=== PATIENT | female | born 2000 | race Caucasian/White ===

== ENCOUNTER → 2022-04-11 17:10 | Outpatient (CLI) | payer OTHER, SELFPAY ==
[2022-04-11 19:41] LABS: Urine N gonorrhoeae NOT DETECTED
[2022-04-11 19:50] LABS: Urine Chlamydia NOT DETECTED
[2022-04-11 20:11] LABS: HIV 1 & 2 Ab/Ag 4th Gen Combo NEGATIVE (NEGATIVE)
[2022-04-13 05:33] LABS: RPR Screen Non Reactive (Non Reactive)
== END ==
PROVIDERS: PCP Family Medicine; Referring Provider Family Medicine; Visit Provider Family Medicine
DX: Z11.3 Encounter for screening for infections with a predominantly sexual mode of transmission (principal)
CPT/HCPCS: 36415; 86592; 87389; 87491; 87591

== ENCOUNTER → 2022-06-23 15:09 | Outpatient (CLI) | payer OTHER, SELFPAY ==
[2022-06-23 15:28] LABS: Hematocrit 37.7 % (36-46); Hemoglobin 12.6 g/dL (12.0-16.0); Mean Corpuscular HGB Conc 33.4 % (30-36); Mean Corpuscular Hemoglobin 30.7 PG (26-34); Mean Corpuscular Volume 91.8 fL (80-100); Platelet Count 217 X10^3/uL (150-400); Red Cell Distribution Width 12.9 % (11.6-14.8); White Blood Cell Count 9.7 X10^3/uL (4.5-11.0)
[2022-06-23 15:55] LABS: BUN Creatinine Ratio 27.4 (6-22); Blood Urea Nitrogen 17 mg/dL (7-17); Calcium 9.2 mg/dL (8.4-10.2); Carbon Dioxide 28 mmol/L (22-32); Chloride 98 mmol/L (98-107); Estimated Glomerular Filt Rate > 60 mL/min (>60); Glucose 94 mg/dL (70-100); HEMOLYSIS < 15 (0-50); Potassium 3.2 mmol/L (3.4-5.1); Sodium 136 mmol/L (137-145)
== END ==
PROVIDERS: PCP Family Medicine; Referring Provider Nurse Practitioner Family; Visit Provider Nurse Practitioner Family
DX: R10.2 Pelvic and perineal pain (principal)
CPT/HCPCS: 36415; 80048; 85027

== ENCOUNTER → 2022-07-14 16:12 | Outpatient (CLI) | payer OTHER, SELFPAY ==
--- NOTE | 2022-07-14 16:13 | DI.US.S_ITS ---
PROCEDURE: US PELVIC COMPLETE INDICATIONS: pelvic pain TECHNIQUE: Real-time scanning was performed of the pelvic organs, with image documentation. Additional endovaginal scanning was necessary due to incomplete visualization of the adnexal and endometrial structures by transabdominal scanning. COMPARISON: [facility], CT, CT KUB, 12/24/2020, 22:43. FINDINGS: Uterus: Uterus is anteverted and normal in size at 6.1 x 2.1 x 3.4 cm. The myometrium is homogeneous. The endometrium measures 2 mm combined thickness. Ovaries: The right ovary measures 3.6 x 2.9 x 2.9 cm, with a calculated ovarian volume of 15.7 cc. The left ovary measures 3.1 x 1.6 x 1.8 cm, with a calculated ovarian volume of 0.6 cc. The ovaries have a normal sonographic appearance, with note made of a dominant cystic follicle involving the right ovary that measures up to 2.7 cm, with a daughter cyst seen. This is considered to be within physiologic limits. Less than 12 follicles can be seen in each ovary. No adnexal masses are seen. Other: No pathologic free abdominal or pelvic fluid. IMPRESSION: Unremarkable pelvic ultrasound, without a cause of pelvic pain identified. We strive to produce accurate, complete, and clear reports of imaging services. To assist us in improving patient care, this report was composed using standard report templates and voice recognition software. Therefore, it may contain abnormal punctuation, insertions and/or omissions. Occasional wrong-word or sound-alike substitutions may occur. Though we review the report and make efforts to correct it, we do recommend that the report be read carefully in proper context to recognize any text inaccuracies. Dictated by: Jabeir Iqbal M.D. on 07/14/2022 at 17:48 Approved by: Jabier Iqbal M.D. on 07/14/2022 at 17:49
== END ==
PROVIDERS: PCP Family Medicine; Referring Provider Nurse Practitioner Family; Visit Provider Nurse Practitioner Family
DX: R10.2 Pelvic and perineal pain (principal)
CPT/HCPCS: 76830; 76856

== ENCOUNTER → 2023-04-18 14:35 | Outpatient (CLI) | payer OTHER, MEDICAID, SELFPAY ==
[2023-04-18 15:30] LABS: Pregnancy Test Serum,Qual Negative (Negative)
[2023-04-18 16:50] LABS: Urine N gonorrhoeae NOT DETECTED
[2023-04-18 16:53] LABS: Urine Chlamydia NOT DETECTED
[2023-04-19 07:23] LABS: RPR Screen Non Reactive (Non Reactive)
[2023-04-20 18:18] LABS: Hepatitis B Surface Antigen NEGATIVE s/c (NEGATIVE)
[2023-04-20 18:38] LABS: HIV 1 & 2 Ab/Ag 4th Gen Combo NEGATIVE (NEGATIVE); Hep C Virus Ab w/Reflex Quant NEGATIVE s/c (NEGATIVE)
[2023-05-30 12:44] LABS: HSV1IGG 2.92
[2023-05-30 12:53] LABS: HSV 2 IGG AB 8.26
== END ==
PROVIDERS: PCP Family Medicine; Referring Provider Family Medicine; Visit Provider Family Medicine
DX: N92.6 Irregular menstruation, unspecified (principal)
CPT/HCPCS: 36415; 84703; 86592; 86695; 86696; 86803; 87340; 87389; 87491; 87591

== ENCOUNTER → 2023-12-27 11:24 | Outpatient (CLI) | payer OTHER, MEDICAID, SELFPAY ==
[2023-12-27 12:11] LABS: Add Manual Diff / Slide Review NO; Basophils Absolute Auto 0 /uL (0-100); Basophils Percent Auto 0.6 % (0-2); Eosinophils Absolute Auto 200 /uL (0-450); Eosinophils Percent Auto 2.4 % (2-4); Hematocrit 37.2 % (36-46); Hemoglobin 12.6 g/dL (12.0-16.0); Lymphocytes Absolute Auto 2100 /uL (1100-4500); Lymphocytes Percent Auto 33.5 % (25-40); Mean Corpuscular Hemoglobin 31.1 PG (26-34); Mean Corpuscular Volume 91.6 fL (80-100); Monocytes Absolute Auto 700 /uL (0-900); Monocytes Percent Auto 10.6 % (3-14); Neutrophils Absolute Auto 3400 /uL (1500-7000); Neutrophils Percent Auto 52.9 % (50-75); Platelet Count 265 X10^3/uL (150-400); Red Blood Cell Count 4.05 X10^6/uL (4.0-5.2); Red Cell Distribution Width 13.2 % (11.6-14.8); White Blood Cell Count 6.4 X10^3/uL (4.5-11.0)
[2023-12-27 12:35] LABS: Alanine Aminotransferase 19 IU/L (<35); Albumin 4.4 g/dL (3.5-5.0); Albumin Globulin Ratio 1.6 (1.0-2.8); Alkaline Phosphatase 85 U/L (38-126); Aspartate Aminotransferase 25 IU/L (14-36); BUN Creatinine Ratio 20.7 (6-22); Bilirubin Total 0.3 mg/dL (0.2-1.3); Blood Urea Nitrogen 17 mg/dL (7-17); Calcium 8.8 mg/dL (8.4-10.2); Carbon Dioxide 23 mmol/L (22-32); Chloride 106 mmol/L (98-107); Estimated Glomerular Filt Rate > 60 mL/min (>60); Globulin 2.7 g/dL (1.7-4.1); Glucose 84 mg/dL (70-100); HEMOLYSIS < 15 (0-50); Potassium 4.9 mmol/L (3.4-5.1); Sodium 137 mmol/L (137-145); Total Protein 7.1 g/dL (6.3-8.2)
[2023-12-27 12:38] LABS: HEMOLYSIS < 15 (0-50); Iron 97 ug/dL (37-170)
[2023-12-27 12:50] LABS: Percent Iron Saturation 28 % (15-50); Total Iron Binding Capacity 346 ug/dL (265-497); Transferrin 276 mg/dL (206-381)
[2023-12-27 13:09] LABS: TSH w/ Reflex to FT4 1.21 uIU/mL (0.47-4.68)
[2023-12-27 13:10] LABS: Ferritin 43 ng/mL (6-137)
[2023-12-27 13:24] LABS: Vitamin B12 417 pg/mL (239-931)
== END ==
LOC: LAB 11:25
PROVIDERS: PCP Family Medicine; Referring Provider Physician Assistant; Visit Provider Physician Assistant
DX: N92.6 Irregular menstruation, unspecified (principal); R53.83 Other fatigue
CPT/HCPCS: 36415; 80053; 82607; 82728; 83540; 83550; 84443; 85025

== ENCOUNTER → 2024-02-12 16:28 | Outpatient (CLI) | payer OTHER, MEDICAID, SELFPAY ==
[2024-02-13 14:12] LABS: Interpretation Negative (Negative)
== END ==
LOC: LAB 16:30
PROVIDERS: PCP Family Medicine; Referring Provider Family Medicine; Visit Provider Family Medicine
DX: K52.9 Noninfective gastroenteritis and colitis, unspecified (principal); R10.9 Unspecified abdominal pain; G89.29 Other chronic pain
CPT/HCPCS: 83013

== ENCOUNTER → 2024-02-13 14:11 | Outpatient (CLI) | payer OTHER, SELFPAY | PROVIDERS: PCP Family Medicine; Referring Provider Family Medicine; Visit Provider Family Medicine | DX: K52.9 Noninfective gastroenteritis and colitis, unspecified (principal); R10.9 Unspecified abdominal pain; G89.29 Other chronic pain | CPT/HCPCS: 87045 ==